=== PATIENT | male | born 1960 | race Caucasian/White ===

== ENCOUNTER 2016-03-05 14:44 | Inpatient (IN) | payer OTHER ==
[~2016-03-05] VITALS: Ht 188 cm; Wt 104.3 kg
[2016-03-05] MEDS ORDERED: AMLO5TAB2 (14:57)
[2016-03-05] MEDS ORDERED: SULF1TAB3 (14:57)
[2016-03-05] MEDS ORDERED: CEPH500C2 (14:57)
[2016-03-05] MEDS ORDERED: IV NS 0.9% 1,000 ML BAG IV ONE (15:30)
[2016-03-05] MEDS ORDERED: ACETAMINOPHEN ES 500 MG TABLET ONE (15:35)
[2016-03-05 15:51] LABS: KETONES,URINE NEGATIVE (NEGATIVE); LEUKOCYTE ESTERASE ,URINE NEGATIVE (NEGATIVE); PH,URINE 5.5 (5.0-8.0)
[2016-03-05] MEDS ORDERED: IV SET PRIMARY PUMP SET 1 EA INFUS.SET MC ONE (15:53)
[2016-03-05] MEDS ORDERED: IV NS 0.9% 1,000 ML ONE (15:53)
[2016-03-05] MEDS ORDERED: IV SET PRIMARY 1 EA INFUS.SET MC ONE (15:53)
[2016-03-05] MEDS ORDERED: AMLO5TAB2 PO (15:54)
[2016-03-05] MEDS ORDERED: CEPH-570 PO (15:54)
[2016-03-05] MEDS ORDERED: SULF1TAB48 PO (15:54)
[2016-03-05 15:57] LABS: ANION GAP 15 (5-14); CALCIUM, SERUM 8.5 mg/dL (8.5-10.1); CARBON DIOXIDE 24 mmol/L (21-32); CHLORIDE 102 mmol/L (98-107); CREATININE 0.9 mg/dL (0.6-1.3); GFR 88 mL/min (>60); GLUCOSE 83 mg/dL (74-106); SODIUM SERUM 137 mmol/L (136-145); UREA NITROGEN, BLOOD 13 mg/dL (7-18)
[2016-03-05 15:57] LABS: ADD UA MICROSCOPIC YES
[2016-03-05] MEDS ORDERED: VANCOMYCIN 1 GM in IV D5W 250 ML IV ONE (16:00)
[2016-03-05] MEDS ORDERED: ACETAMINOPHEN ES 500 MG TABLET PO ONE (16:00)
[2016-03-05] MEDS ORDERED: PIPERACILLIN /TAZOBACTAM 3.375 G in IV D5W 50 ML IV ONE (16:00)
[2016-03-05 16:01] LABS: ALANINE AMINOTRANSFERASE 36 U/L (12-78); ALBUMIN 3.5 g/dL (3.4-5.0); ASPARTATE AMINOTRANSFERASE 42 U/L (15-37); BASOPHILS % (AUTO) 0.6 % (0.0-2.0); BILIRUBIN,DIRECT 0.1 mg/dL (0.0-0.2); BILIRUBIN,TOTAL 0.5 mg/dL (0.2-1.0); DIFF TOTAL % 100 %; EOSINOPHILS # (AUTO) 0.3 /CMM (0.0-0.7); EOSINOPHILS % (AUTO) 4.7 % (0.0-6.0); HEMATOCRIT 38 % (39-51); HEMOGLOBIN 12.6 g/dL (13.5-17.5); INDIRECT BILIRUBIN 0.4 mg/dL (0.0-1.1); LYMPHOCYTES # (AUTO) 1.6 /CMM (0.8-4.8); LYMPHOCYTES % (AUTO) 25.6 % (20.0-44.0); MEAN CORPUSCULAR HEMOGLOBIN 31 PG (26.0-33.0); MEAN CORPUSCULAR HGB CONC 33 g/dl (31.0-36.0); MEAN CORPUSCULAR VOLUME 94 fL (80-96); MONOCYTES # (AUTO) 0.4 /CMM (0.1-1.30); MONOCYTES % (AUTO) 6.2 % (2.0-12.0); NEUTROPHILS # (AUTO) 4.1 /CMM (1.8-8.9); NEUTROPHILS % (AUTO) 62.9 % (43.0-81.0); PLATELET COUNT (AUTO) 244 /CMM (150-450); RED BLOOD CELL COUNT(AUTO) 4.04 MIL/uL (4.5-6.0); TOTAL PROTEIN, SERUM 8.6 g/dL (6.4-8.2); WHITE BLOOD COUNT (AUTO) 6.4 K/uL (4.3-11.0)
[2016-03-05 16:02] LABS: TROPONIN I < 0.017 ng/mL (0.00-0.056)
[2016-03-05 16:05] LABS: LACTIC ACID 1.6 mmol/L (0.4-2.0)
[2016-03-05 16:10] LABS: INR 1.02 (0.87-1.13)
[2016-03-05 16:32] LABS: ADD URINE CULTURE NO; WBC,URINE 0-2 /HPF (0-3)
[2016-03-05] MEDS ORDERED: Z GUARD REMEDY 2 OZ OINT TP PRN (17:30)
[2016-03-05] MEDS ORDERED: ACETAMINOPHEN 325 MG TABLET PO PRN (17:30)
[2016-03-05] MEDS ORDERED: HYDROCODONE/APAP 5/325MG 1 EACH TABLET PO PRN (17:30)
[2016-03-05] MEDS ORDERED: ZOLPIDEM TARTRATE 5 MG TABLET PO PRN (17:30)
[2016-03-05] MEDS ORDERED: MAGNESIUM HYDROXIDE 30 ML UDC PO PRN (17:30)
[2016-03-05] MEDS ORDERED: ONDANSETRON HCL/PF 4 MG/2 ML VIAL IVP PRN (17:30)
[2016-03-05] MEDS ORDERED: ENOXAPARIN SODIUM 30 MG/0.3 ML DISP.SYRIN SQ SCH (17:30)
[2016-03-05] MEDS ORDERED: MAG HYDROX/AL HYDROX/SIMETH 30 ML UDC PO PRN (17:30)
[2016-03-05] MEDS ORDERED: FEE PK DOSING 1 MIN EA MC ONE (18:19)
[2016-03-05] MEDS ORDERED: DEXTROSE 50%-WATER 50 ML DISP.SYRIN IV PRN (19:00)
[2016-03-05] MEDS ORDERED: LORAZEPAM 1 MG TABLET PO PRN (19:00)
[2016-03-05 20:23] VITALS: BP 154/86
[2016-03-05] MEDS ORDERED: PIPERACILLIN /TAZOBACTAM 3.375 G in IV D5W 100 ML IV SCH (21:00)
[2016-03-05] MEDS: BLOOD SUGAR DIAGNOSTIC 1 EACH STRIP IN SCH (22:49)
[2016-03-05] MEDS: LEVOFLOXACIN (750 MG) 750 MG TABLET PO SCH (22:49)
[2016-03-05] MEDS: ENOXAPARIN SODIUM 40 MG/0.4 ML DISP.SYRIN SQ SCH (22:50)
[2016-03-06] MEDS ORDERED: PIPERACILLIN /TAZOBACTAM 3.375 G in IV D5W 50 ML IV SCH ×2
[2016-03-06] MEDS ORDERED: VANCOMYCIN 1 GM VIAL ONE (00:03)
[2016-03-06] MEDS ORDERED: IV NS 0.9% 0 ML IV ONE (00:04)
[2016-03-06] MEDS ORDERED: SECONDARY IV SET 1 EA INFUS.SET MC ONE ×2 (00:04→13:38)
[2016-03-06] MEDS: IV NS 0.9% 1,000 ML IV PRN (00:18)
[2016-03-06] MEDS: VANCOMYCIN 1.25 GM in IV D5W 500 ML IV SCH ×3 (00:19→17:34)
[2016-03-06] MEDS: BLOOD SUGAR DIAGNOSTIC 1 EACH STRIP IN SCH ×4 (07:59→22:24)
[2016-03-06 08:00] VITALS: BP_SYST 103; BP_SYST 153; BP_DIAS 68; BP_DIAS 95
[2016-03-06 08:02] LABS: BASOPHILS # (AUTO) 0.1 /CMM (0.0-0.2); BASOPHILS % (AUTO) 0.7 % (0.0-2.0); DIFF TOTAL % 100 %; EOSINOPHILS # (AUTO) 0.4 /CMM (0.0-0.7); EOSINOPHILS % (AUTO) 4.9 % (0.0-6.0); HEMATOCRIT 44 % (39-51); HEMOGLOBIN 14.6 g/dL (13.5-17.5); LYMPHOCYTES # (AUTO) 1.8 /CMM (0.8-4.8); LYMPHOCYTES % (AUTO) 19.6 % (20.0-44.0); MEAN CORPUSCULAR HEMOGLOBIN 32 PG (26.0-33.0); MEAN CORPUSCULAR HGB CONC 34 g/dl (31.0-36.0); MEAN CORPUSCULAR VOLUME 94 fL (80-96); MONOCYTES # (AUTO) 0.7 /CMM (0.1-1.30); MONOCYTES % (AUTO) 7.9 % (2.0-12.0); NEUTROPHILS # (AUTO) 6.1 /CMM (1.8-8.9); NEUTROPHILS % (AUTO) 66.9 % (43.0-81.0); PLATELET COUNT (AUTO) 231 /CMM (150-450); RED BLOOD CELL COUNT(AUTO) 4.65 MIL/uL (4.5-6.0); WHITE BLOOD COUNT (AUTO) 9.1 K/uL (4.3-11.0)
[2016-03-06 08:07] LABS: CALCIUM, SERUM 8.8 mg/dL (8.5-10.1); CREATININE 0.9 mg/dL (0.6-1.3); PHOSPHORUS 2.7 mg/dL (2.5-4.9)
[2016-03-06] MEDS: PANTOPRAZOLE 40 MG VIAL IV SCH (08:51)
[2016-03-06] MEDS: THIAMINE HCL 100 MG TABLET PO SCH (08:52)
[2016-03-06] MEDS: FOLIC ACID 1 MG TABLET PO SCH (08:52)
[2016-03-06] MEDS: MULTIVITAMINS W-MINERALS 1 TAB TABLET PO SCH (08:52)
[2016-03-06] MEDS: AMLODIPINE BESYLATE 5 MG TABLET PO SCH (08:52)
[2016-03-06] MEDS: CADEXOMER IODINE 40 GM TUBE TP SCH (11:00)
[2016-03-06] MEDS ORDERED: IV SET PRIMARY PUMP SET 1 EA INFUS.SET MC ONE (13:37)
[2016-03-06] MEDS: METRONIDAZOLE 500MG/ NS 100ML 500 MG in PREMIX 1 EA IV SCH ×2 (13:44→21:25)
[2016-03-06] MEDS: Magnesium 1GM/D5W 100ML PREMIX 100 ML IV SCH ×2 (13:44→14:40)
[2016-03-06 15:46] LABS: KETONES,URINE 1+ (NEGATIVE); LEUKOCYTE ESTERASE ,URINE NEGATIVE (NEGATIVE)
[2016-03-06 16:00] VITALS: BP_SYST 150; BP_SYST 155; BP_DIAS 86
[2016-03-06 16:02] LABS: ADD UA MICROSCOPIC YES
[2016-03-06 16:10] LABS: ADD URINE CULTURE NO; WBC,URINE 0-2 /HPF (0-3)
[2016-03-06] MEDS: LACTOBACILLUS RHAMNOSUS GG 1 EACH CAP.SPRINK PO SCH (17:35)
[2016-03-06 18:00] VITALS: BP 150/86
[2016-03-06 20:01] VITALS: BP 142/96
[2016-03-06] MEDS: LEVOFLOXACIN (750 MG) 750 MG TABLET PO SCH (20:13)
[2016-03-06] MEDS: ENOXAPARIN SODIUM 40 MG/0.4 ML DISP.SYRIN SQ SCH (21:28)
[2016-03-07] MEDS: VANCOMYCIN 1.25 GM in IV D5W 500 ML IV SCH ×2 (00:12→09:41)
[2016-03-07] MEDS: IV NS 0.9% 1,000 ML IV PRN (00:14)
[2016-03-07] MEDS: METRONIDAZOLE 500MG/ NS 100ML 500 MG in PREMIX 1 EA IV SCH ×3 (05:25→21:36)
[2016-03-07 07:03] LABS: BASOPHILS % (AUTO) 0.6 % (0.0-2.0); DIFF TOTAL % 100 %; EOSINOPHILS # (AUTO) 0.5 /CMM (0.0-0.7); EOSINOPHILS % (AUTO) 6.9 % (0.0-6.0); HEMATOCRIT 46 % (39-51); HEMOGLOBIN 15.5 g/dL (13.5-17.5); LYMPHOCYTES # (AUTO) 1.7 /CMM (0.8-4.8); LYMPHOCYTES % (AUTO) 26.1 % (20.0-44.0); MEAN CORPUSCULAR HEMOGLOBIN 32 PG (26.0-33.0); MEAN CORPUSCULAR HGB CONC 34 g/dl (31.0-36.0); MEAN CORPUSCULAR VOLUME 95 fL (80-96); MONOCYTES # (AUTO) 0.6 /CMM (0.1-1.30); MONOCYTES % (AUTO) 9.7 % (2.0-12.0); NEUTROPHILS # (AUTO) 3.7 /CMM (1.8-8.9); NEUTROPHILS % (AUTO) 56.7 % (43.0-81.0); PLATELET COUNT (AUTO) 222 /CMM (150-450); WHITE BLOOD COUNT (AUTO) 6.5 K/uL (4.3-11.0)
[2016-03-07 07:48] LABS: CALCIUM, SERUM 8.8 mg/dL (8.5-10.1); CREATININE 0.9 mg/dL (0.6-1.3)
[2016-03-07 08:00] VITALS: BP 159/96
[2016-03-07] MEDS: THIAMINE HCL 100 MG TABLET PO SCH (09:41)
[2016-03-07] MEDS: BLOOD SUGAR DIAGNOSTIC 1 EACH STRIP IN SCH ×4 (09:41→22:11)
[2016-03-07] MEDS: PANTOPRAZOLE 40 MG VIAL IV SCH (09:41)
[2016-03-07] MEDS: AMLODIPINE BESYLATE 5 MG TABLET PO SCH (09:42)
[2016-03-07] MEDS: CADEXOMER IODINE 40 GM TUBE TP SCH (09:42)
[2016-03-07] MEDS: LACTOBACILLUS RHAMNOSUS GG 1 EACH CAP.SPRINK PO SCH ×2 (09:42→16:36)
[2016-03-07] MEDS: FOLIC ACID 1 MG TABLET PO SCH (09:42)
[2016-03-07] MEDS: MULTIVITAMINS W-MINERALS 1 TAB TABLET PO SCH (09:42)
[2016-03-07] MEDS: Magnesium 1GM/D5W 100ML PREMIX 100 ML IV SCH ×2 (13:20→15:32)
[2016-03-07] MEDS: INSULIN REGULAR, HUMAN 100 UNIT/ML 3 ML VIAL SQ PRN (13:24)
[2016-03-07 16:00] VITALS: BP 140/80
[2016-03-07] MEDS: VANCOMYCIN 1 GM in IV D5W 250 ML IV SCH ×2 (16:36→23:56)
[2016-03-07] MEDS: LEVOFLOXACIN (750 MG) 750 MG TABLET PO SCH (19:50)
[2016-03-07 20:00] VITALS: BP 132/96
[2016-03-07] MEDS: ENOXAPARIN SODIUM 40 MG/0.4 ML DISP.SYRIN SQ SCH (21:00)
[2016-03-07] MEDS ORDERED: SECONDARY IV SET 1 EA INFUS.SET MC ONE (21:35)
[2016-03-07] MEDS: *INSULIN REGULAR(HUMULIN R)HUM 100 UNIT/ML VIAL SQ PRN (22:14)
[2016-03-08] MEDS: IV NS 0.9% 1,000 ML IV PRN (04:27)
[2016-03-08] MEDS: METRONIDAZOLE 500MG/ NS 100ML 500 MG in PREMIX 1 EA IV SCH ×3 (04:37→21:14)
[2016-03-08] MEDS: BLOOD SUGAR DIAGNOSTIC 1 EACH STRIP IN SCH ×4 (06:43→22:24)
[2016-03-08 07:00] LABS: BASOPHILS % (AUTO) 0.5 % (0.0-2.0); DIFF TOTAL % 100 %; EOSINOPHILS # (AUTO) 0.6 /CMM (0.0-0.7); EOSINOPHILS % (AUTO) 7.1 % (0.0-6.0); HEMATOCRIT 44 % (39-51); HEMOGLOBIN 14.7 g/dL (13.5-17.5); LYMPHOCYTES % (AUTO) 25.6 % (20.0-44.0); MEAN CORPUSCULAR HEMOGLOBIN 32 PG (26.0-33.0); MEAN CORPUSCULAR HGB CONC 34 g/dl (31.0-36.0); MEAN CORPUSCULAR VOLUME 95 fL (80-96); MONOCYTES # (AUTO) 0.8 /CMM (0.1-1.30); MONOCYTES % (AUTO) 10.3 % (2.0-12.0); NEUTROPHILS # (AUTO) 4.5 /CMM (1.8-8.9); NEUTROPHILS % (AUTO) 56.5 % (43.0-81.0); PLATELET COUNT (AUTO) 189 /CMM (150-450); RED BLOOD CELL COUNT(AUTO) 4.59 MIL/uL (4.5-6.0)
[2016-03-08 07:17] LABS: CALCIUM, SERUM 8.8 mg/dL (8.5-10.1); CREATININE 0.9 mg/dL (0.6-1.3)
[2016-03-08 08:00] VITALS: BP 173/86
[2016-03-08] MEDS ORDERED: MIDAZOLAM HCL 2 MG/2ML VIAL ONE (08:42)
[2016-03-08] MEDS ORDERED: FENTANYL PF 100MCG/2ML AMPUL ONE (08:42)
[2016-03-08] MEDS ORDERED: LIDOCAINE HCL/PF 1% 30 ML SDV ONE (08:58)
[2016-03-08] MEDS: CADEXOMER IODINE 40 GM TUBE TP SCH (09:00)
[2016-03-08] MEDS: VANCOMYCIN 1 GM in IV D5W 250 ML IV SCH ×2 (11:26→22:26)
[2016-03-08] MEDS: THIAMINE HCL 100 MG TABLET PO SCH (11:27)
[2016-03-08] MEDS: FOLIC ACID 1 MG TABLET PO SCH (11:27)
[2016-03-08] MEDS: MULTIVITAMINS W-MINERALS 1 TAB TABLET PO SCH (11:27)
[2016-03-08] MEDS: PANTOPRAZOLE 40 MG VIAL IV SCH (11:27)
[2016-03-08] MEDS: LACTOBACILLUS RHAMNOSUS GG 1 EACH CAP.SPRINK PO SCH ×2 (11:27→17:24)
[2016-03-08] MEDS: AMLODIPINE BESYLATE 5 MG TABLET PO SCH (11:28)
[2016-03-08] MEDS: Magnesium 1GM/D5W 100ML PREMIX 100 ML IV SCH ×2 (12:21→13:11)
[2016-03-08] MEDS: *INSULIN REGULAR(HUMULIN R)HUM 100 UNIT/ML VIAL SQ PRN ×2 (12:21→22:25)
[2016-03-08] MEDS ORDERED: VANCOMYCIN 1 GM in IV D5W 250 ML IV SCH (13:00)
[2016-03-08] MEDS ORDERED: SECONDARY IV SET 1 EA INFUS.SET MC ONE (13:14)
[2016-03-08 16:00] VITALS: BP 144/79
[2016-03-08 20:00] VITALS: BP 138/72
[2016-03-08 20:08] VITALS: BP 138/72
[2016-03-08] MEDS: LEVOFLOXACIN (750 MG) 750 MG TABLET PO SCH (21:14)
[2016-03-08] MEDS: ENOXAPARIN SODIUM 40 MG/0.4 ML DISP.SYRIN SQ SCH (21:16)
[2016-03-09] MEDS ORDERED: IV NS 0.9% 1,000 ML ONE (04:52)
[2016-03-09] MEDS: METRONIDAZOLE 500MG/ NS 100ML 500 MG in PREMIX 1 EA IV SCH ×2 (04:58→14:25)
[2016-03-09] MEDS: IV NS 0.9% 1,000 ML IV PRN (04:58)
[2016-03-09] MEDS: VANCOMYCIN 1 GM in IV D5W 250 ML IV SCH ×3 (06:17→21:31)
[2016-03-09 06:28] LABS: BASOPHILS % (AUTO) 0.6 % (0.0-2.0); DIFF TOTAL % 100 %; EOSINOPHILS # (AUTO) 0.4 /CMM (0.0-0.7); EOSINOPHILS % (AUTO) 5.3 % (0.0-6.0); HEMATOCRIT 43 % (39-51); HEMOGLOBIN 14.6 g/dL (13.5-17.5); LYMPHOCYTES # (AUTO) 2.1 /CMM (0.8-4.8); LYMPHOCYTES % (AUTO) 26.8 % (20.0-44.0); MEAN CORPUSCULAR HEMOGLOBIN 32 PG (26.0-33.0); MEAN CORPUSCULAR HGB CONC 34 g/dl (31.0-36.0); MEAN CORPUSCULAR VOLUME 95 fL (80-96); MONOCYTES # (AUTO) 0.9 /CMM (0.1-1.30); MONOCYTES % (AUTO) 11.6 % (2.0-12.0); NEUTROPHILS # (AUTO) 4.3 /CMM (1.8-8.9); NEUTROPHILS % (AUTO) 55.7 % (43.0-81.0); PLATELET COUNT (AUTO) 218 /CMM (150-450); RED BLOOD CELL COUNT(AUTO) 4.54 MIL/uL (4.5-6.0); WHITE BLOOD COUNT (AUTO) 7.7 K/uL (4.3-11.0)
[2016-03-09 06:41] LABS: CALCIUM, SERUM 8.9 mg/dL (8.5-10.1); CREATININE 0.9 mg/dL (0.6-1.3); PHOSPHORUS 4.2 mg/dL (2.5-4.9); POTASSIUM 4.4 mmol/L (3.5-5.1)
[2016-03-09] MEDS: BLOOD SUGAR DIAGNOSTIC 1 EACH STRIP IN SCH ×4 (06:57→22:00)
[2016-03-09] MEDS: INSULIN REGULAR, HUMAN 100 UNIT/ML 3 ML VIAL SQ PRN ×2 (06:59→17:51)
[2016-03-09] MEDS: LACTOBACILLUS RHAMNOSUS GG 1 EACH CAP.SPRINK PO SCH ×2 (07:59→16:42)
[2016-03-09] MEDS: FOLIC ACID 1 MG TABLET PO SCH (07:59)
[2016-03-09] MEDS: PANTOPRAZOLE 40 MG VIAL IV SCH (07:59)
[2016-03-09 08:00] VITALS: BP 158/86
[2016-03-09] MEDS: MULTIVITAMINS W-MINERALS 1 TAB TABLET PO SCH (08:00)
[2016-03-09] MEDS: THIAMINE HCL 100 MG TABLET PO SCH (08:00)
[2016-03-09] MEDS: AMLODIPINE BESYLATE 5 MG TABLET PO SCH (08:00)
[2016-03-09] MEDS: CADEXOMER IODINE 40 GM TUBE TP SCH (08:02)
[2016-03-09] MEDS: Magnesium 1GM/D5W 100ML PREMIX 100 ML IV SCH ×2 (11:54→14:25)
[2016-03-09] MEDS: *INSULIN REGULAR(HUMULIN R)HUM 100 UNIT/ML VIAL SQ PRN ×2 (12:06→22:03)
[2016-03-09 16:00] VITALS: BP 137/85
[2016-03-09 20:00] VITALS: BP 144/86
[2016-03-09] MEDS: ENOXAPARIN SODIUM 40 MG/0.4 ML DISP.SYRIN SQ SCH (21:34)
[2016-03-09] MEDS: METRONIDAZOLE 500 MG TABLET PO SCH (21:39)
[2016-03-10] MEDS: LEVOFLOXACIN (750 MG) 750 MG TABLET PO SCH ×2 (02:05→20:40)
[2016-03-10] MEDS: VANCOMYCIN 1 GM in IV D5W 250 ML IV SCH ×3 (06:08→20:44)
[2016-03-10] MEDS: METRONIDAZOLE 500 MG TABLET PO SCH ×3 (06:08→20:48)
[2016-03-10] MEDS: BLOOD SUGAR DIAGNOSTIC 1 EACH STRIP IN SCH ×4 (06:13→21:54)
[2016-03-10] MEDS: INSULIN REGULAR, HUMAN 100 UNIT/ML 3 ML VIAL SQ PRN ×3 (06:15→18:09)
[2016-03-10 06:21] LABS: CALCIUM, SERUM 8.7 mg/dL (8.5-10.1); CREATININE 0.8 mg/dL (0.6-1.3); POTASSIUM 4.3 mmol/L (3.5-5.1)
[2016-03-10 08:00] VITALS: BP 152/87
[2016-03-10 08:42] VITALS: BP 152/87
[2016-03-10] MEDS: FOLIC ACID 1 MG TABLET PO SCH (09:03)
[2016-03-10] MEDS: PANTOPRAZOLE 40 MG VIAL IV SCH (09:03)
[2016-03-10] MEDS: LACTOBACILLUS RHAMNOSUS GG 1 EACH CAP.SPRINK PO SCH ×2 (09:03→17:10)
[2016-03-10] MEDS: MULTIVITAMINS W-MINERALS 1 TAB TABLET PO SCH (09:03)
[2016-03-10] MEDS: THIAMINE HCL 100 MG TABLET PO SCH (09:03)
[2016-03-10] MEDS: AMLODIPINE BESYLATE 5 MG TABLET PO SCH (09:04)
[2016-03-10] MEDS: CADEXOMER IODINE 40 GM TUBE TP SCH (09:14)
[2016-03-10] MEDS: Magnesium 1GM/D5W 100ML PREMIX 100 ML IV SCH ×3 (11:06→12:27)
[2016-03-10 16:00] VITALS: BP 126/73
[2016-03-10 20:22] VITALS: BP 141/79
[2016-03-10] MEDS: ENOXAPARIN SODIUM 40 MG/0.4 ML DISP.SYRIN SQ SCH (20:53)
[2016-03-10] MEDS: *INSULIN REGULAR(HUMULIN R)HUM 100 UNIT/ML VIAL SQ PRN (21:57)
[2016-03-10 22:00] VITALS: BP 141/79
[2016-03-11] MEDS: METRONIDAZOLE 500 MG TABLET PO SCH ×3 (05:10→21:50)
[2016-03-11] MEDS: VANCOMYCIN 1 GM in IV D5W 250 ML IV SCH ×3 (05:16→20:14)
[2016-03-11] MEDS: BLOOD SUGAR DIAGNOSTIC 1 EACH STRIP IN SCH ×4 (06:33→21:50)
[2016-03-11] MEDS: INSULIN REGULAR, HUMAN 100 UNIT/ML 3 ML VIAL SQ PRN ×3 (06:44→21:55)
[2016-03-11 06:59] LABS: CALCIUM, SERUM 8.7 mg/dL (8.5-10.1); CREATININE 0.8 mg/dL (0.6-1.3)
[2016-03-11 07:03] LABS: KETONES,URINE NEGATIVE (NEGATIVE); LEUKOCYTE ESTERASE ,URINE NEGATIVE (NEGATIVE); PH,URINE 6.5 (5.0-8.0)
[2016-03-11 07:07] LABS: ADD UA MICROSCOPIC YES
[2016-03-11 07:26] LABS: CREATININE, URINE 53.3 MG/DL (30.0-125.0); URINE TOTAL PROTEIN 9.5 mg/dL (0-11.9)
[2016-03-11 08:00] VITALS: BP 149/91
[2016-03-11 08:06] LABS: ADD URINE CULTURE NO; MUCUS,URINE Rare /LPF (None Seen); WBC,URINE 0-2 /HPF (0-3)
[2016-03-11] MEDS: PANTOPRAZOLE 40 MG VIAL IV SCH (08:43)
[2016-03-11] MEDS: MULTIVITAMINS W-MINERALS 1 TAB TABLET PO SCH (08:43)
[2016-03-11] MEDS: FOLIC ACID 1 MG TABLET PO SCH (08:43)
[2016-03-11] MEDS: LACTOBACILLUS RHAMNOSUS GG 1 EACH CAP.SPRINK PO SCH ×2 (08:43→17:22)
[2016-03-11] MEDS: THIAMINE HCL 100 MG TABLET PO SCH (08:43)
[2016-03-11] MEDS: AMLODIPINE BESYLATE 5 MG TABLET PO SCH (08:45)
[2016-03-11] MEDS: CADEXOMER IODINE 40 GM TUBE TP SCH (08:53)
[2016-03-11] MEDS ORDERED: IV NS 0.9% 250 ML IV ONE (12:30)
[2016-03-11 16:00] VITALS: BP 134/90
[2016-03-11 20:00] VITALS: BP 130/85
[2016-03-11] MEDS: LEVOFLOXACIN (750 MG) 750 MG TABLET PO SCH (20:13)
[2016-03-11] MEDS ORDERED: SECONDARY IV SET 1 EA INFUS.SET MC ONE (20:14)
[2016-03-11] MEDS: ENOXAPARIN SODIUM 40 MG/0.4 ML DISP.SYRIN SQ SCH (21:51)
[2016-03-12] MEDS: METRONIDAZOLE 500 MG TABLET PO SCH ×3 (04:29→20:57)
[2016-03-12] MEDS: VANCOMYCIN 1 GM in IV D5W 250 ML IV SCH ×3 (04:30→20:57)
[2016-03-12] MEDS: BLOOD SUGAR DIAGNOSTIC 1 EACH STRIP IN SCH ×4 (06:51→22:07)
[2016-03-12] MEDS: INSULIN REGULAR, HUMAN 100 UNIT/ML 3 ML VIAL SQ PRN ×3 (06:54→16:39)
[2016-03-12 07:15] LABS: CALCIUM, SERUM 8.8 mg/dL (8.5-10.1); CREATININE 0.9 mg/dL (0.6-1.3); POTASSIUM 3.8 mmol/L (3.5-5.1)
[2016-03-12 08:00] VITALS: BP 145/77
[2016-03-12] MEDS: THIAMINE HCL 100 MG TABLET PO SCH (08:11)
[2016-03-12] MEDS: PANTOPRAZOLE 40 MG VIAL IV SCH (08:11)
[2016-03-12] MEDS: MULTIVITAMINS W-MINERALS 1 TAB TABLET PO SCH (08:11)
[2016-03-12] MEDS: FOLIC ACID 1 MG TABLET PO SCH (08:11)
[2016-03-12] MEDS: AMLODIPINE BESYLATE 5 MG TABLET PO SCH (08:11)
[2016-03-12] MEDS: LACTOBACILLUS RHAMNOSUS GG 1 EACH CAP.SPRINK PO SCH ×2 (08:11→16:33)
[2016-03-12] MEDS: CADEXOMER IODINE 40 GM TUBE TP SCH (14:46)
[2016-03-12 16:06] VITALS: BP 141/76
[2016-03-12] MEDS: LEVOFLOXACIN (750 MG) 750 MG TABLET PO SCH (19:58)
[2016-03-12 20:00] VITALS: BP 129/82
[2016-03-12] MEDS: ENOXAPARIN SODIUM 40 MG/0.4 ML DISP.SYRIN SQ SCH (20:59)
[2016-03-12] MEDS: *INSULIN REGULAR(HUMULIN R)HUM 100 UNIT/ML VIAL SQ PRN (22:13)
[2016-03-13] MEDS: METRONIDAZOLE 500 MG TABLET PO SCH ×3 (05:27→20:56)
[2016-03-13] MEDS: VANCOMYCIN 1 GM in IV D5W 250 ML IV SCH ×3 (05:28→21:21)
[2016-03-13] MEDS: BLOOD SUGAR DIAGNOSTIC 1 EACH STRIP IN SCH ×4 (05:44→22:04)
[2016-03-13 07:02] LABS: CALCIUM, SERUM 8.9 mg/dL (8.5-10.1); CREATININE 0.9 mg/dL (0.6-1.3)
[2016-03-13 08:00] VITALS: BP 151/99
[2016-03-13] MEDS: LACTOBACILLUS RHAMNOSUS GG 1 EACH CAP.SPRINK PO SCH ×2 (08:35→16:26)
[2016-03-13] MEDS: THIAMINE HCL 100 MG TABLET PO SCH (08:36)
[2016-03-13] MEDS: PANTOPRAZOLE 40 MG VIAL IV SCH (08:36)
[2016-03-13] MEDS: MULTIVITAMINS W-MINERALS 1 TAB TABLET PO SCH (08:36)
[2016-03-13] MEDS: FOLIC ACID 1 MG TABLET PO SCH (08:36)
[2016-03-13] MEDS: AMLODIPINE BESYLATE 5 MG TABLET PO SCH (08:37)
[2016-03-13] MEDS: CADEXOMER IODINE 40 GM TUBE TP SCH (08:41)
[2016-03-13] MEDS: INSULIN REGULAR, HUMAN 100 UNIT/ML 3 ML VIAL SQ PRN (12:20)
[2016-03-13 16:00] VITALS: BP 132/78
[2016-03-13] MEDS: LEVOFLOXACIN (750 MG) 750 MG TABLET PO SCH (19:46)
[2016-03-13 20:00] VITALS: BP 145/68
[2016-03-13] MEDS: ENOXAPARIN SODIUM 40 MG/0.4 ML DISP.SYRIN SQ SCH (20:57)
[2016-03-13] MEDS: *INSULIN REGULAR(HUMULIN R)HUM 100 UNIT/ML VIAL SQ PRN (22:11)
[2016-03-14] MEDS: VANCOMYCIN 1 GM in IV D5W 250 ML IV SCH ×2 (05:02→13:36)
[2016-03-14] MEDS: METRONIDAZOLE 500 MG TABLET PO SCH ×3 (05:02→21:43)
[2016-03-14] MEDS: BLOOD SUGAR DIAGNOSTIC 1 EACH STRIP IN SCH ×4 (06:12→21:48)
[2016-03-14] MEDS: INSULIN REGULAR, HUMAN 100 UNIT/ML 3 ML VIAL SQ PRN ×3 (06:16→17:34)
[2016-03-14 08:00] VITALS: BP 130/84
[2016-03-14] MEDS: LACTOBACILLUS RHAMNOSUS GG 1 EACH CAP.SPRINK PO SCH ×2 (08:26→17:30)
[2016-03-14] MEDS: FOLIC ACID 1 MG TABLET PO SCH (08:26)
[2016-03-14] MEDS: MULTIVITAMINS W-MINERALS 1 TAB TABLET PO SCH (08:26)
[2016-03-14] MEDS: AMLODIPINE BESYLATE 5 MG TABLET PO SCH (08:27)
[2016-03-14] MEDS: THIAMINE HCL 100 MG TABLET PO SCH (08:27)
[2016-03-14] MEDS: PANTOPRAZOLE 40 MG VIAL IV SCH (08:27)
[2016-03-14 08:29] LABS: CREATININE 0.9 mg/dL (0.6-1.3)
[2016-03-14 08:36] LABS: BASOPHILS # (AUTO) 0.1 /CMM (0.0-0.2); BASOPHILS % (AUTO) 1.3 % (0.0-2.0); DIFF TOTAL % 100 %; EOSINOPHILS # (AUTO) 0.3 /CMM (0.0-0.7); EOSINOPHILS % (AUTO) 4.4 % (0.0-6.0); HEMATOCRIT 44 % (39-51); LYMPHOCYTES # (AUTO) 2.4 /CMM (0.8-4.8); LYMPHOCYTES % (AUTO) 32.7 % (20.0-44.0); MEAN CORPUSCULAR HEMOGLOBIN 32 PG (26.0-33.0); MEAN CORPUSCULAR HGB CONC 34 g/dl (31.0-36.0); MEAN CORPUSCULAR VOLUME 94 fL (80-96); MONOCYTES # (AUTO) 0.7 /CMM (0.1-1.30); MONOCYTES % (AUTO) 9.9 % (2.0-12.0); NEUTROPHILS # (AUTO) 3.7 /CMM (1.8-8.9); NEUTROPHILS % (AUTO) 51.7 % (43.0-81.0); PLATELET COUNT (AUTO) 269 /CMM (150-450); RED BLOOD CELL COUNT(AUTO) 4.72 MIL/uL (4.5-6.0); WHITE BLOOD COUNT (AUTO) 7.2 K/uL (4.3-11.0)
[2016-03-14] MEDS: CADEXOMER IODINE 40 GM TUBE TP SCH (11:21)
[2016-03-14 16:00] VITALS: BP 148/89
[2016-03-14 19:42] VITALS: BP 155/82
[2016-03-14 20:00] VITALS: BP 155/82
[2016-03-14] MEDS: LEVOFLOXACIN (750 MG) 750 MG TABLET PO SCH (20:21)
[2016-03-14] MEDS: VANCOMYCIN 1.25 GM in IV D5W 500 ML IV SCH (20:22)
[2016-03-14] MEDS: ENOXAPARIN SODIUM 40 MG/0.4 ML DISP.SYRIN SQ SCH (20:28)
[2016-03-14] MEDS: *INSULIN REGULAR(HUMULIN R)HUM 100 UNIT/ML VIAL SQ PRN (21:51)
[2016-03-15] MEDS: VANCOMYCIN 1.25 GM in IV D5W 500 ML IV SCH ×3 (04:28→23:46)
[2016-03-15] MEDS: METRONIDAZOLE 500 MG TABLET PO SCH ×3 (04:29→21:06)
[2016-03-15] MEDS: BLOOD SUGAR DIAGNOSTIC 1 EACH STRIP IN SCH ×4 (07:08→21:11)
[2016-03-15] MEDS: INSULIN REGULAR, HUMAN 100 UNIT/ML 3 ML VIAL SQ PRN (07:11)
[2016-03-15 07:53] LABS: BASOPHILS # (AUTO) 0.1 /CMM (0.0-0.2); BASOPHILS % (AUTO) 1.2 % (0.0-2.0); DIFF TOTAL % 100 %; EOSINOPHILS # (AUTO) 0.3 /CMM (0.0-0.7); EOSINOPHILS % (AUTO) 4.7 % (0.0-6.0); HEMATOCRIT 42 % (39-51); HEMOGLOBIN 14.2 g/dL (13.5-17.5); LYMPHOCYTES # (AUTO) 1.9 /CMM (0.8-4.8); LYMPHOCYTES % (AUTO) 30.9 % (20.0-44.0); MEAN CORPUSCULAR HEMOGLOBIN 32 PG (26.0-33.0); MEAN CORPUSCULAR HGB CONC 34 g/dl (31.0-36.0); MEAN CORPUSCULAR VOLUME 95 fL (80-96); MONOCYTES # (AUTO) 0.7 /CMM (0.1-1.30); MONOCYTES % (AUTO) 10.4 % (2.0-12.0); NEUTROPHILS # (AUTO) 3.3 /CMM (1.8-8.9); NEUTROPHILS % (AUTO) 52.8 % (43.0-81.0); PLATELET COUNT (AUTO) 246 /CMM (150-450); RED BLOOD CELL COUNT(AUTO) 4.47 MIL/uL (4.5-6.0); WHITE BLOOD COUNT (AUTO) 6.3 K/uL (4.3-11.0)
[2016-03-15 08:00] VITALS: BP 146/94
[2016-03-15 08:12] LABS: CALCIUM, SERUM 8.7 mg/dL (8.5-10.1); CREATININE 0.8 mg/dL (0.6-1.3); POTASSIUM 3.8 mmol/L (3.5-5.1)
[2016-03-15] MEDS: CADEXOMER IODINE 40 GM TUBE TP SCH (08:27)
[2016-03-15] MEDS: LACTOBACILLUS RHAMNOSUS GG 1 EACH CAP.SPRINK PO SCH ×2 (08:27→17:19)
[2016-03-15] MEDS: FOLIC ACID 1 MG TABLET PO SCH (08:27)
[2016-03-15] MEDS: AMLODIPINE BESYLATE 5 MG TABLET PO SCH (08:27)
[2016-03-15] MEDS: MULTIVITAMINS W-MINERALS 1 TAB TABLET PO SCH (08:27)
[2016-03-15] MEDS: PANTOPRAZOLE 40 MG VIAL IV SCH (08:27)
[2016-03-15] MEDS: THIAMINE HCL 100 MG TABLET PO SCH (08:27)
[2016-03-15] MEDS: *INSULIN REGULAR(HUMULIN R)HUM 100 UNIT/ML VIAL SQ PRN ×3 (12:34→21:18)
[2016-03-15 16:00] VITALS: BP 131/90
[2016-03-15 20:00] VITALS: BP 149/84
[2016-03-15] MEDS: LEVOFLOXACIN (750 MG) 750 MG TABLET PO SCH (21:06)
[2016-03-15] MEDS: ENOXAPARIN SODIUM 40 MG/0.4 ML DISP.SYRIN SQ SCH (21:09)
[2016-03-15] MEDS ORDERED: SECONDARY IV SET 1 EA INFUS.SET MC ONE (23:42)
[2016-03-16] MEDS: METRONIDAZOLE 500 MG TABLET PO SCH ×3 (04:55→20:46)
[2016-03-16] MEDS: BLOOD SUGAR DIAGNOSTIC 1 EACH STRIP IN SCH ×4 (06:24→21:10)
[2016-03-16] MEDS: INSULIN REGULAR, HUMAN 100 UNIT/ML 3 ML VIAL SQ PRN ×2 (06:28→11:56)
[2016-03-16 06:37] LABS: BASOPHILS # (AUTO) 0.1 /CMM (0.0-0.2); BASOPHILS % (AUTO) 1.5 % (0.0-2.0); CALCIUM, SERUM 8.7 mg/dL (8.5-10.1); CREATININE 0.8 mg/dL (0.6-1.3); DIFF TOTAL % 100 %; EOSINOPHILS # (AUTO) 0.3 /CMM (0.0-0.7); EOSINOPHILS % (AUTO) 4.1 % (0.0-6.0); HEMATOCRIT 42 % (39-51); HEMOGLOBIN 14.2 g/dL (13.5-17.5); LYMPHOCYTES # (AUTO) 2.2 /CMM (0.8-4.8); LYMPHOCYTES % (AUTO) 34.2 % (20.0-44.0); MEAN CORPUSCULAR HEMOGLOBIN 32 PG (26.0-33.0); MEAN CORPUSCULAR HGB CONC 34 g/dl (31.0-36.0); MEAN CORPUSCULAR VOLUME 95 fL (80-96); MONOCYTES # (AUTO) 0.6 /CMM (0.1-1.30); MONOCYTES % (AUTO) 10.1 % (2.0-12.0); NEUTROPHILS # (AUTO) 3.2 /CMM (1.8-8.9); NEUTROPHILS % (AUTO) 50.1 % (43.0-81.0); PLATELET COUNT (AUTO) 252 /CMM (150-450); POTASSIUM 3.8 mmol/L (3.5-5.1); RED BLOOD CELL COUNT(AUTO) 4.47 MIL/uL (4.5-6.0); WHITE BLOOD COUNT (AUTO) 6.3 K/uL (4.3-11.0)
[2016-03-16 08:00] VITALS: BP 149/76
[2016-03-16] MEDS: LACTOBACILLUS RHAMNOSUS GG 1 EACH CAP.SPRINK PO SCH ×2 (09:35→17:37)
[2016-03-16] MEDS: THIAMINE HCL 100 MG TABLET PO SCH (09:35)
[2016-03-16] MEDS: PANTOPRAZOLE 40 MG VIAL IV SCH (09:35)
[2016-03-16] MEDS: MULTIVITAMINS W-MINERALS 1 TAB TABLET PO SCH (09:35)
[2016-03-16] MEDS: FOLIC ACID 1 MG TABLET PO SCH (09:35)
[2016-03-16] MEDS: CADEXOMER IODINE 40 GM TUBE TP SCH (09:36)
[2016-03-16] MEDS: AMLODIPINE BESYLATE 5 MG TABLET PO SCH (09:36)
[2016-03-16] MEDS: VANCOMYCIN 1.25 GM in IV D5W 500 ML IV SCH ×2 (11:58→23:48)
[2016-03-16 16:00] VITALS: BP 132/81
[2016-03-16 20:00] VITALS: BP 119/79
[2016-03-16] MEDS: LEVOFLOXACIN (750 MG) 750 MG TABLET PO SCH (20:46)
[2016-03-16] MEDS: ENOXAPARIN SODIUM 40 MG/0.4 ML DISP.SYRIN SQ SCH (20:52)
[2016-03-16] MEDS: *INSULIN REGULAR(HUMULIN R)HUM 100 UNIT/ML VIAL SQ PRN (21:24)
[2016-03-17] MEDS: METRONIDAZOLE 500 MG TABLET PO SCH ×3 (05:04→21:19)
[2016-03-17 06:10] LABS: BASOPHILS # (AUTO) 0.1 /CMM (0.0-0.2); BASOPHILS % (AUTO) 1.4 % (0.0-2.0); DIFF TOTAL % 100 %; EOSINOPHILS # (AUTO) 0.2 /CMM (0.0-0.7); EOSINOPHILS % (AUTO) 3.8 % (0.0-6.0); HEMATOCRIT 42 % (39-51); HEMOGLOBIN 14.1 g/dL (13.5-17.5); LYMPHOCYTES # (AUTO) 2.3 /CMM (0.8-4.8); LYMPHOCYTES % (AUTO) 35.5 % (20.0-44.0); MEAN CORPUSCULAR HEMOGLOBIN 32 PG (26.0-33.0); MEAN CORPUSCULAR HGB CONC 34 g/dl (31.0-36.0); MEAN CORPUSCULAR VOLUME 94 fL (80-96); MONOCYTES # (AUTO) 0.7 /CMM (0.1-1.30); MONOCYTES % (AUTO) 10.3 % (2.0-12.0); NEUTROPHILS # (AUTO) 3.2 /CMM (1.8-8.9); PLATELET COUNT (AUTO) 274 /CMM (150-450); RED BLOOD CELL COUNT(AUTO) 4.47 MIL/uL (4.5-6.0); WHITE BLOOD COUNT (AUTO) 6.4 K/uL (4.3-11.0)
[2016-03-17 06:19] LABS: CALCIUM, SERUM 8.8 mg/dL (8.5-10.1); CREATININE 0.9 mg/dL (0.6-1.3); POTASSIUM 3.6 mmol/L (3.5-5.1)
[2016-03-17] MEDS: BLOOD SUGAR DIAGNOSTIC 1 EACH STRIP IN SCH ×4 (06:28→21:19)
[2016-03-17] MEDS: INSULIN REGULAR, HUMAN 100 UNIT/ML 3 ML VIAL SQ PRN ×3 (06:37→17:50)
[2016-03-17 08:00] VITALS: BP 132/74
[2016-03-17] MEDS: PANTOPRAZOLE 40 MG VIAL IV SCH (08:20)
[2016-03-17] MEDS: MULTIVITAMINS W-MINERALS 1 TAB TABLET PO SCH (08:20)
[2016-03-17] MEDS: THIAMINE HCL 100 MG TABLET PO SCH (08:21)
[2016-03-17] MEDS: LACTOBACILLUS RHAMNOSUS GG 1 EACH CAP.SPRINK PO SCH ×2 (08:21→16:37)
[2016-03-17] MEDS: AMLODIPINE BESYLATE 5 MG TABLET PO SCH (08:21)
[2016-03-17] MEDS: FOLIC ACID 1 MG TABLET PO SCH (08:21)
[2016-03-17] MEDS: CADEXOMER IODINE 40 GM TUBE TP SCH (08:22)
[2016-03-17] MEDS: VANCOMYCIN 1.25 GM in IV D5W 500 ML IV SCH (12:06)
[2016-03-17 15:56] VITALS: BP 144/76
[2016-03-17 20:00] VITALS: BP 122/76
[2016-03-17] MEDS: LEVOFLOXACIN (750 MG) 750 MG TABLET PO SCH (20:03)
[2016-03-17] MEDS: VANCOMYCIN 1 GM in IV D5W 250 ML IV SCH (20:03)
[2016-03-17] MEDS: ENOXAPARIN SODIUM 40 MG/0.4 ML DISP.SYRIN SQ SCH (21:23)
[2016-03-17] MEDS: *INSULIN REGULAR(HUMULIN R)HUM 100 UNIT/ML VIAL SQ PRN (21:25)
[2016-03-18] MEDS: METRONIDAZOLE 500 MG TABLET PO SCH ×3 (04:11→20:40)
[2016-03-18] MEDS: VANCOMYCIN 1 GM in IV D5W 250 ML IV SCH ×3 (04:11→20:40)
[2016-03-18] MEDS: BLOOD SUGAR DIAGNOSTIC 1 EACH STRIP IN SCH ×4 (06:43→21:37)
[2016-03-18] MEDS: INSULIN REGULAR, HUMAN 100 UNIT/ML 3 ML VIAL SQ PRN ×2 (06:45→17:06)
[2016-03-18 06:56] LABS: BASOPHILS % (AUTO) 0.4 % (0.0-2.0); DIFF TOTAL % 100 %; EOSINOPHILS # (AUTO) 0.2 /CMM (0.0-0.7); EOSINOPHILS % (AUTO) 2.5 % (0.0-6.0); HEMATOCRIT 42 % (39-51); HEMOGLOBIN 14.2 g/dL (13.5-17.5); LYMPHOCYTES # (AUTO) 2.1 /CMM (0.8-4.8); LYMPHOCYTES % (AUTO) 32.3 % (20.0-44.0); MEAN CORPUSCULAR HEMOGLOBIN 32 PG (26.0-33.0); MEAN CORPUSCULAR HGB CONC 34 g/dl (31.0-36.0); MEAN CORPUSCULAR VOLUME 94 fL (80-96); MONOCYTES # (AUTO) 0.7 /CMM (0.1-1.30); MONOCYTES % (AUTO) 10.9 % (2.0-12.0); NEUTROPHILS # (AUTO) 3.5 /CMM (1.8-8.9); NEUTROPHILS % (AUTO) 53.9 % (43.0-81.0); PLATELET COUNT (AUTO) 272 /CMM (150-450); RED BLOOD CELL COUNT(AUTO) 4.46 MIL/uL (4.5-6.0); WHITE BLOOD COUNT (AUTO) 6.6 K/uL (4.3-11.0)
[2016-03-18 07:12] LABS: CALCIUM, SERUM 8.7 mg/dL (8.5-10.1); CREATININE 0.8 mg/dL (0.6-1.3); POTASSIUM 3.8 mmol/L (3.5-5.1)
[2016-03-18 08:04] VITALS: BP 165/100
[2016-03-18] MEDS: LACTOBACILLUS RHAMNOSUS GG 1 EACH CAP.SPRINK PO SCH ×2 (08:48→17:04)
[2016-03-18] MEDS: THIAMINE HCL 100 MG TABLET PO SCH (08:48)
[2016-03-18] MEDS: PANTOPRAZOLE 40 MG VIAL IV SCH (08:48)
[2016-03-18] MEDS: MULTIVITAMINS W-MINERALS 1 TAB TABLET PO SCH (08:48)
[2016-03-18] MEDS: FOLIC ACID 1 MG TABLET PO SCH (08:48)
[2016-03-18] MEDS: AMLODIPINE BESYLATE 5 MG TABLET PO SCH (08:49)
[2016-03-18 09:00] VITALS: BP 165/100
[2016-03-18] MEDS: CADEXOMER IODINE 40 GM TUBE TP SCH (09:00)
[2016-03-18 16:06] VITALS: BP 146/87
[2016-03-18 20:00] VITALS: BP 149/88
[2016-03-18] MEDS: LEVOFLOXACIN (750 MG) 750 MG TABLET PO SCH (20:40)
[2016-03-18] MEDS: ENOXAPARIN SODIUM 40 MG/0.4 ML DISP.SYRIN SQ SCH (20:46)
[2016-03-19] MEDS: METRONIDAZOLE 500 MG TABLET PO SCH ×3 (04:20→20:44)
[2016-03-19] MEDS: VANCOMYCIN 1 GM in IV D5W 250 ML IV SCH ×3 (04:20→20:43)
[2016-03-19] MEDS: BLOOD SUGAR DIAGNOSTIC 1 EACH STRIP IN SCH ×4 (06:57→22:28)
[2016-03-19] MEDS: INSULIN REGULAR, HUMAN 100 UNIT/ML 3 ML VIAL SQ PRN ×2 (06:57→17:23)
[2016-03-19 07:18] LABS: CALCIUM, SERUM 8.8 mg/dL (8.5-10.1); CREATININE 0.8 mg/dL (0.6-1.3); POTASSIUM 3.8 mmol/L (3.5-5.1)
[2016-03-19] MEDS: MULTIVITAMINS W-MINERALS 1 TAB TABLET PO SCH (07:57)
[2016-03-19] MEDS: PANTOPRAZOLE 40 MG VIAL IV SCH (07:58)
[2016-03-19] MEDS: AMLODIPINE BESYLATE 5 MG TABLET PO SCH (07:58)
[2016-03-19] MEDS: LACTOBACILLUS RHAMNOSUS GG 1 EACH CAP.SPRINK PO SCH ×2 (07:58→16:56)
[2016-03-19] MEDS: CADEXOMER IODINE 40 GM TUBE TP SCH (07:58)
[2016-03-19] MEDS: FOLIC ACID 1 MG TABLET PO SCH (07:58)
[2016-03-19] MEDS: THIAMINE HCL 100 MG TABLET PO SCH (07:58)
[2016-03-19 08:00] VITALS: BP 129/88
[2016-03-19] MEDS: *INSULIN REGULAR(HUMULIN R)HUM 100 UNIT/ML VIAL SQ PRN ×2 (12:20→22:30)
[2016-03-19 16:00] VITALS: BP 121/74
[2016-03-19 19:56] VITALS: BP 132/74
[2016-03-19 20:07] VITALS: BP 132/74
[2016-03-19] MEDS: LEVOFLOXACIN (750 MG) 750 MG TABLET PO SCH (20:44)
[2016-03-19] MEDS: ENOXAPARIN SODIUM 40 MG/0.4 ML DISP.SYRIN SQ SCH (20:50)
[2016-03-20] MEDS: METRONIDAZOLE 500 MG TABLET PO SCH ×3 (04:10→21:13)
[2016-03-20] MEDS: VANCOMYCIN 1 GM in IV D5W 250 ML IV SCH ×3 (04:12→20:24)
[2016-03-20] MEDS: BLOOD SUGAR DIAGNOSTIC 1 EACH STRIP IN SCH ×4 (06:55→21:14)
[2016-03-20 07:25] LABS: CALCIUM, SERUM 8.7 mg/dL (8.5-10.1); CREATININE 0.8 mg/dL (0.6-1.3); POTASSIUM 3.8 mmol/L (3.5-5.1)
[2016-03-20 08:00] VITALS: BP 135/73
[2016-03-20] MEDS: FOLIC ACID 1 MG TABLET PO SCH (08:14)
[2016-03-20] MEDS: PANTOPRAZOLE 40 MG VIAL IV SCH (08:14)
[2016-03-20] MEDS: LACTOBACILLUS RHAMNOSUS GG 1 EACH CAP.SPRINK PO SCH ×2 (08:14→16:59)
[2016-03-20] MEDS: MULTIVITAMINS W-MINERALS 1 TAB TABLET PO SCH (08:14)
[2016-03-20] MEDS: AMLODIPINE BESYLATE 5 MG TABLET PO SCH (08:14)
[2016-03-20] MEDS: CADEXOMER IODINE 40 GM TUBE TP SCH (08:14)
[2016-03-20] MEDS: THIAMINE HCL 100 MG TABLET PO SCH (08:14)
[2016-03-20] MEDS: INSULIN REGULAR, HUMAN 100 UNIT/ML 3 ML VIAL SQ PRN (11:55)
[2016-03-20 16:00] VITALS: BP 136/81
[2016-03-20 20:00] VITALS: BP 148/89
[2016-03-20] MEDS ORDERED: IV NS 0.9% 250 ML IV ONE (20:19)
[2016-03-20] MEDS ORDERED: SECONDARY IV SET 1 EA INFUS.SET MC ONE (20:19)
[2016-03-20] MEDS ORDERED: IV SET PRIMARY PUMP SET 1 EA INFUS.SET MC ONE (20:19)
[2016-03-20] MEDS: LEVOFLOXACIN (750 MG) 750 MG TABLET PO SCH (20:24)
[2016-03-20] MEDS: ENOXAPARIN SODIUM 40 MG/0.4 ML DISP.SYRIN SQ SCH (21:14)
[2016-03-20] MEDS: *INSULIN REGULAR(HUMULIN R)HUM 100 UNIT/ML VIAL SQ PRN (21:22)
[2016-03-21] MEDS: VANCOMYCIN 1 GM in IV D5W 250 ML IV SCH ×3 (05:15→21:04)
[2016-03-21] MEDS: METRONIDAZOLE 500 MG TABLET PO SCH ×3 (05:15→21:11)
[2016-03-21 07:01] LABS: CALCIUM, SERUM 8.8 mg/dL (8.5-10.1); CREATININE 0.8 mg/dL (0.6-1.3); POTASSIUM 3.7 mmol/L (3.5-5.1)
[2016-03-21 08:00] VITALS: BP_SYST 140; BP_DIAS 68; BP_DIAS 88
[2016-03-21] MEDS: PANTOPRAZOLE 40 MG TABLET.DR PO SCH (08:41)
[2016-03-21] MEDS: THIAMINE HCL 100 MG TABLET PO SCH (08:41)
[2016-03-21] MEDS: AMLODIPINE BESYLATE 5 MG TABLET PO SCH (08:41)
[2016-03-21] MEDS: MULTIVITAMINS W-MINERALS 1 TAB TABLET PO SCH (08:42)
[2016-03-21] MEDS: LACTOBACILLUS RHAMNOSUS GG 1 EACH CAP.SPRINK PO SCH ×2 (08:42→17:24)
[2016-03-21] MEDS: FOLIC ACID 1 MG TABLET PO SCH (08:42)
[2016-03-21] MEDS: BLOOD SUGAR DIAGNOSTIC 1 EACH STRIP IN SCH ×4 (08:43→21:12)
[2016-03-21] MEDS: CADEXOMER IODINE 40 GM TUBE TP SCH (08:43)
[2016-03-21] MEDS: INSULIN REGULAR, HUMAN 100 UNIT/ML 3 ML VIAL SQ PRN ×2 (11:49→17:55)
[2016-03-21 15:50] VITALS: BP 117/77
[2016-03-21 16:00] VITALS: BP 117/77
[2016-03-21 20:00] VITALS: BP 133/80
[2016-03-21] MEDS: ENOXAPARIN SODIUM 40 MG/0.4 ML DISP.SYRIN SQ SCH (21:10)
[2016-03-21] MEDS: LEVOFLOXACIN (750 MG) 750 MG TABLET PO SCH (21:10)
[2016-03-21] MEDS: *INSULIN REGULAR(HUMULIN R)HUM 100 UNIT/ML VIAL SQ PRN (21:20)
[2016-03-21] MEDS ORDERED: IV NS 0.9% 250 ML IV ONE (22:08)
[2016-03-22] MEDS: VANCOMYCIN 1 GM in IV D5W 250 ML IV SCH ×3 (04:34→20:24)
[2016-03-22] MEDS: METRONIDAZOLE 500 MG TABLET PO SCH ×3 (04:34→20:24)
[2016-03-22] MEDS: PANTOPRAZOLE 40 MG TABLET.DR PO SCH (06:49)
[2016-03-22] MEDS: BLOOD SUGAR DIAGNOSTIC 1 EACH STRIP IN SCH ×4 (06:49→20:25)
[2016-03-22 07:22] LABS: CALCIUM, SERUM 8.8 mg/dL (8.5-10.1); CREATININE 0.8 mg/dL (0.6-1.3); POTASSIUM 3.6 mmol/L (3.5-5.1)
[2016-03-22 08:00] VITALS: BP 129/88
[2016-03-22] MEDS: AMLODIPINE BESYLATE 5 MG TABLET PO SCH (08:31)
[2016-03-22] MEDS: LACTOBACILLUS RHAMNOSUS GG 1 EACH CAP.SPRINK PO SCH ×2 (08:31→16:22)
[2016-03-22] MEDS: MULTIVITAMINS W-MINERALS 1 TAB TABLET PO SCH (08:31)
[2016-03-22] MEDS: THIAMINE HCL 100 MG TABLET PO SCH (08:32)
[2016-03-22] MEDS: FOLIC ACID 1 MG TABLET PO SCH (08:32)
[2016-03-22] MEDS: CADEXOMER IODINE 40 GM TUBE TP SCH (08:37)
[2016-03-22] MEDS: INSULIN REGULAR, HUMAN 100 UNIT/ML 3 ML VIAL SQ PRN ×2 (12:08→16:23)
[2016-03-22 16:00] VITALS: BP 117/73
[2016-03-22 20:00] VITALS: BP 132/86
[2016-03-22] MEDS: LEVOFLOXACIN (750 MG) 750 MG TABLET PO SCH (20:24)
[2016-03-22] MEDS: ENOXAPARIN SODIUM 40 MG/0.4 ML DISP.SYRIN SQ SCH (20:34)
[2016-03-22] MEDS: *INSULIN REGULAR(HUMULIN R)HUM 100 UNIT/ML VIAL SQ PRN (20:57)
[2016-03-23] MEDS: METRONIDAZOLE 500 MG TABLET PO SCH ×3 (04:02→20:34)
[2016-03-23] MEDS: VANCOMYCIN 1 GM in IV D5W 250 ML IV SCH ×3 (04:02→20:06)
[2016-03-23] MEDS: BLOOD SUGAR DIAGNOSTIC 1 EACH STRIP IN SCH ×4 (06:46→22:14)
[2016-03-23] MEDS: PANTOPRAZOLE 40 MG TABLET.DR PO SCH (06:46)
[2016-03-23 07:36] LABS: CALCIUM, SERUM 8.7 mg/dL (8.5-10.1); CREATININE 0.9 mg/dL (0.6-1.3); POTASSIUM 3.9 mmol/L (3.5-5.1)
[2016-03-23] MEDS: LACTOBACILLUS RHAMNOSUS GG 1 EACH CAP.SPRINK PO SCH ×2 (08:00→17:17)
[2016-03-23] MEDS: FOLIC ACID 1 MG TABLET PO SCH (08:00)
[2016-03-23] MEDS: MULTIVITAMINS W-MINERALS 1 TAB TABLET PO SCH (08:00)
[2016-03-23] MEDS: THIAMINE HCL 100 MG TABLET PO SCH (08:00)
[2016-03-23] MEDS: CADEXOMER IODINE 40 GM TUBE TP SCH (08:01)
[2016-03-23] MEDS: AMLODIPINE BESYLATE 5 MG TABLET PO SCH (08:01)
[2016-03-23 08:51] VITALS: BP 153/94
[2016-03-23] MEDS: *INSULIN REGULAR(HUMULIN R)HUM 100 UNIT/ML VIAL SQ PRN ×2 (12:18→22:15)
[2016-03-23 17:38] VITALS: BP 115/72
[2016-03-23 20:00] VITALS: BP 131/87
[2016-03-23] MEDS: LEVOFLOXACIN (750 MG) 750 MG TABLET PO SCH (20:06)
[2016-03-23] MEDS: ENOXAPARIN SODIUM 40 MG/0.4 ML DISP.SYRIN SQ SCH (20:32)
[2016-03-24] MEDS: VANCOMYCIN 1 GM in IV D5W 250 ML IV SCH ×3 (04:24→21:09)
[2016-03-24] MEDS: METRONIDAZOLE 500 MG TABLET PO SCH ×3 (06:17→21:10)
[2016-03-24] MEDS: BLOOD SUGAR DIAGNOSTIC 1 EACH STRIP IN SCH ×4 (06:18→21:10)
[2016-03-24] MEDS: INSULIN REGULAR, HUMAN 100 UNIT/ML 3 ML VIAL SQ PRN ×3 (06:26→21:22)
[2016-03-24] MEDS: PANTOPRAZOLE 40 MG TABLET.DR PO SCH (07:59)
[2016-03-24 08:00] VITALS: BP 141/84
[2016-03-24 08:00] LABS: CALCIUM, SERUM 8.8 mg/dL (8.5-10.1); CREATININE 0.8 mg/dL (0.6-1.3); POTASSIUM 4.2 mmol/L (3.5-5.1)
[2016-03-24] MEDS: THIAMINE HCL 100 MG TABLET PO SCH (08:00)
[2016-03-24] MEDS: LACTOBACILLUS RHAMNOSUS GG 1 EACH CAP.SPRINK PO SCH ×2 (08:00→17:24)
[2016-03-24] MEDS: FOLIC ACID 1 MG TABLET PO SCH (08:00)
[2016-03-24] MEDS: MULTIVITAMINS W-MINERALS 1 TAB TABLET PO SCH (08:00)
[2016-03-24] MEDS: AMLODIPINE BESYLATE 5 MG TABLET PO SCH (08:02)
[2016-03-24] MEDS: CADEXOMER IODINE 40 GM TUBE TP SCH (08:02)
[2016-03-24] MEDS: *INSULIN REGULAR(HUMULIN R)HUM 100 UNIT/ML VIAL SQ PRN (12:06)
[2016-03-24 20:00] VITALS: BP 121/81
[2016-03-24] MEDS: LEVOFLOXACIN (750 MG) 750 MG TABLET PO SCH (21:10)
[2016-03-24] MEDS: ENOXAPARIN SODIUM 40 MG/0.4 ML DISP.SYRIN SQ SCH (21:30)
[2016-03-25] MEDS: VANCOMYCIN 1 GM in IV D5W 250 ML IV SCH ×3 (04:19→20:28)
[2016-03-25] MEDS: METRONIDAZOLE 500 MG TABLET PO SCH ×3 (04:19→20:30)
[2016-03-25] MEDS: BLOOD SUGAR DIAGNOSTIC 1 EACH STRIP IN SCH ×4 (07:19→22:15)
[2016-03-25] MEDS: PANTOPRAZOLE 40 MG TABLET.DR PO SCH (07:19)
[2016-03-25] MEDS: INSULIN REGULAR, HUMAN 100 UNIT/ML 3 ML VIAL SQ PRN ×3 (07:24→17:52)
[2016-03-25 07:43] LABS: CALCIUM, SERUM 8.7 mg/dL (8.5-10.1); CREATININE 0.9 mg/dL (0.6-1.3); POTASSIUM 4.1 mmol/L (3.5-5.1)
[2016-03-25 08:00] VITALS: BP 132/79
[2016-03-25] MEDS: FOLIC ACID 1 MG TABLET PO SCH (08:34)
[2016-03-25] MEDS: CADEXOMER IODINE 40 GM TUBE TP SCH (08:34)
[2016-03-25] MEDS: THIAMINE HCL 100 MG TABLET PO SCH (08:34)
[2016-03-25] MEDS: AMLODIPINE BESYLATE 5 MG TABLET PO SCH (08:34)
[2016-03-25] MEDS: MULTIVITAMINS W-MINERALS 1 TAB TABLET PO SCH (08:34)
[2016-03-25] MEDS: LACTOBACILLUS RHAMNOSUS GG 1 EACH CAP.SPRINK PO SCH ×2 (08:34→17:52)
[2016-03-25 16:00] VITALS: BP 123/79
[2016-03-25 20:00] VITALS: BP 142/95
[2016-03-25] MEDS: LEVOFLOXACIN (750 MG) 750 MG TABLET PO SCH (20:30)
[2016-03-25] MEDS: ENOXAPARIN SODIUM 40 MG/0.4 ML DISP.SYRIN SQ SCH (20:39)
[2016-03-25] MEDS: *INSULIN REGULAR(HUMULIN R)HUM 100 UNIT/ML VIAL SQ PRN (22:16)
[2016-03-26] MEDS: METRONIDAZOLE 500 MG TABLET PO SCH ×2 (04:39→12:46)
[2016-03-26] MEDS: VANCOMYCIN 1 GM in IV D5W 250 ML IV SCH ×2 (04:39→12:00)
[2016-03-26] MEDS: BLOOD SUGAR DIAGNOSTIC 1 EACH STRIP IN SCH ×3 (06:56→16:37)
[2016-03-26 07:18] LABS: CALCIUM, SERUM 8.7 mg/dL (8.5-10.1); CREATININE 0.8 mg/dL (0.6-1.3)
[2016-03-26 08:00] VITALS: BP 140/93
[2016-03-26] MEDS: MULTIVITAMINS W-MINERALS 1 TAB TABLET PO SCH (08:36)
[2016-03-26] MEDS: FOLIC ACID 1 MG TABLET PO SCH (08:36)
[2016-03-26] MEDS: LACTOBACILLUS RHAMNOSUS GG 1 EACH CAP.SPRINK PO SCH ×2 (08:37→16:37)
[2016-03-26] MEDS: AMLODIPINE BESYLATE 5 MG TABLET PO SCH (08:37)
[2016-03-26] MEDS: PANTOPRAZOLE 40 MG TABLET.DR PO SCH (08:37)
[2016-03-26] MEDS: THIAMINE HCL 100 MG TABLET PO SCH (08:37)
[2016-03-26] MEDS: CADEXOMER IODINE 40 GM TUBE TP SCH (08:40)
[2016-03-26] MEDS: INSULIN REGULAR, HUMAN 100 UNIT/ML 3 ML VIAL SQ PRN (12:03)
[2016-03-26] MEDS ORDERED: MULT-479 PO (14:18)
[2016-03-26] MEDS ORDERED: ACET325T53 PO (14:18)
[2016-03-26] MEDS ORDERED: PANT40TA2 PO (14:18)
[2016-03-26] MEDS ORDERED: Cadexomer Iodine TP (14:18)
[2016-03-26] MEDS ORDERED: ALLA266C2 TP (14:18)
[2016-03-26] MEDS ORDERED: Folic Acid PO (14:18)
[2016-03-26 16:00] VITALS: BP 116/73
[2016-03-26] MEDS ORDERED: IV SET PRIMARY PUMP SET 1 EA INFUS.SET MC ONE (16:28)
== END 2016-03-26 17:00 | disposition home health service (06) | DRG 26 ==
LOC: ER 14:48 → MEDSG2 16:57
PROVIDERS: ADMIT Family Medicine; ATTEND Family Medicine
DX: E11.610 Type 2 diabetes mellitus with diabetic neuropathic arthropathy (principal); E11.51 Type 2 diabetes mellitus with diabetic peripheral angiopathy without gangrene; E11.42 Type 2 diabetes mellitus with diabetic polyneuropathy; E11.621 Type 2 diabetes mellitus with foot ulcer; D72.1 Eosinophilia; L97.519 Non-pressure chronic ulcer of other part of right foot with unspecified severity; E11.65 Type 2 diabetes mellitus with hyperglycemia; E87.1 Hypo-osmolality and hyponatremia; L03.115 Cellulitis of right lower limb; L03.116 Cellulitis of left lower limb; I10 Essential (primary) hypertension; Z87.891 Personal history of nicotine dependence; F10.20 Alcohol dependence, uncomplicated; E83.42 Hypomagnesemia; M19.90 Unspecified osteoarthritis, unspecified site; R31.29 Other microscopic hematuria
CPT/HCPCS: 36415; 71010-TC; 73630-TC; 73718-TC; 76770-TC; 80048-TC; 80061-TC; 80076-TC; 80202-TC; 81000-TC; 82570-TC; 82962-TC; 83605-TC; 83735-TC; 83880; 84100-TC; 84155-TC; 84300-TC; 84484-TC; 85025-TC; 85652-TC; 85730-TC; 87040-TC; 87070-TC; 87075-TC; 87081-TC; 87086-TC; 87186-TC; 93970-TC; 97001-TC; 97003-TC; 97116-TC; 97530-TC; A4216; A4217; A4606; A6253; A6402; A6403; A9503; C1751; C9113; J0690; J1650; J1815; J2250; J2543; J2704; J3010; J3370; J3475; J3490; J7030; J7050; J7060; Z7610

== ENCOUNTER 2016-04-02 11:18 | Emergency (ER) | payer OTHER ==
[~2016-04-02] VITALS: Ht 188 cm; Wt 102.1 kg
[~2016-04-02 11:18] MED LIST: ACET325T53 PO; ALLA266C2 TP; AMLO5TAB2 PO; Cadexomer Iodine TP; Folic Acid PO; MULT-479 PO; PANT40TA2 PO
[2016-04-02 13:37] VITALS: BP 135/84
== END 2016-04-02 13:38 | disposition home or self-care (01) ==
LOC: ER 11:20
DX: E11.621 Type 2 diabetes mellitus with foot ulcer (principal); M79.672 Pain in left foot; I10 Essential (primary) hypertension; M79.89 Other specified soft tissue disorders
CPT/HCPCS: 73610-TC; 73630-TC; A4606; Z7610

== ENCOUNTER 2016-05-07 11:49 | Emergency (ER) | payer OTHER ==
[~2016-05-07] VITALS: Ht 188 cm; Wt 79.4 kg
[2016-05-07 14:06] VITALS: BP 129/99
== END 2016-05-07 14:07 | disposition home or self-care (01) ==
LOC: ER 11:50
DX: Z48.00 Encounter for change or removal of nonsurgical wound dressing (principal); I10 Essential (primary) hypertension; E11.621 Type 2 diabetes mellitus with foot ulcer; L97.519 Non-pressure chronic ulcer of other part of right foot with unspecified severity; Z98.890 Other specified postprocedural states
CPT/HCPCS: 73610; 73620; 99284; Z7610; A4606